=== PATIENT | male | born 1960 ===

== ENCOUNTER 2024-10-16 03:23 | Emergency (ER) | payer MEDICAID ==
[2024-10-16 03:47] LABS: BASOPHILS ABSOLUTE AUTO 0.04 K/uL (0.00-0.20); BASOPHILS PERCENT AUTO 0.3 % (0.0-2.0); EOSINOPHILS ABSOLUTE AUTO 0.03 K/uL (0.00-0.50); EOSINOPHILS PERCENT AUTO 0.2 % (0.0-5.0); HEMATOCRIT 43.3 % (39.0-49.0); HEMOGLOBIN 15.3 g/dL (13.1-16.8); IMMATURE GRAN ABSOLUTE AUTO 0.02 10^3/uL (0.00-0.04); IMMATURE GRAN PERCENT AUTO 0.1 % (0.0-0.4); LYMPHOCYTES PERCENT AUTO 14.8 % (10.0-50.0); MEAN CORPUSCULAR HEMOGLOBIN 31.5 pg (28.2-33.3); MEAN CORPUSCULAR HGB CONC 35.3 g/dL (31.7-36.0); MEAN CORPUSCULAR VOLUME 89.1 fL (84.0-98.0); MONOCYTES ABSOLUTE AUTO 0.89 K/uL (0.00-1.00); MONOCYTES PERCENT AUTO 6.3 % (2.0-14.0); NEUTROPHILS ABSOLUTE AUTO 11.11 K/uL (1.40-7.00); NEUTROPHILS PERCENT AUTO 78.3 % (45.0-80.0); PLATELET COUNT,PLT 286 K/uL (150-350); RED BLOOD CELL COUNT 4.86 M/uL (4.33-5.41); RED CELL DISTRIBUTION WIDTH 12.8 % (11.2-14.1); WHITE BLOOD CELL COUNT,WBC 14.2 K/uL (4.0-10.2)
[2024-10-16] MEDS: Diltiazem 25 MG/5 ML SDV IVPUSH ONE (04:02)
[2024-10-16] MEDS: Sodium Chloride 0.9% 10 ML Syringe FLUSH PRN (04:04)
[2024-10-16 04:08] LABS: ALANINE AMINOTRANSFERASE,ALT 47 U/L (12-78); ALBUMIN 3.9 g/dL (3.4-5.0); ALKALINE PHOSPHATASE 120 IU/L (46-116); ANION GAP 15.3 meq/L (7-15); ASPARTATE AMNIOTRANSFERASE,AST 38 U/L (15-37); BILIRUBIN TOTAL 0.6 mg/dL (0.2-1.0); BLOOD UREA NITROGEN,BUN 29 mg/dL (7-18); CALCIUM 9.4 mg/dL (8.5-10.1); CARBON DIOXIDE,CO2 23.5 mmol/L (21.0-32.0); CHLORIDE,CL 100 mmol/L (98-107); CREATININE 1.55 mg/dL (0.51-1.17); ESTIMATED GFR 50 mL/min (>=60); GLUCOSE RANDOM 160 mg/dL (70-99); MAGNESIUM 1.7 mg/dL (1.8-2.4); POTASSIUM,K 3.8 mmol/L (3.5-5.1); PROTEIN TOTAL,TP 9.2 g/dL (6.4-8.2); SODIUM,NA 135 mmol/L (136-145)
[2024-10-16] MEDS: Sodium Chloride 0.9% 1,000 ML IV ONE ×2 (04:24→05:30)
[2024-10-16] MEDS: Ondansetron 4 MG/2 ML SDV IVPUSH ONE (04:27)
[2024-10-16] MEDS: Pantoprazole 40 MG Vial IVPUSH ONE (04:33)
[2024-10-16] MEDS: Magnesium Sulfat/D5W 1GM/100ML 1 GM in Premix Bag 1 BAG IV ONE (04:38)
[2024-10-16] MEDS: Diltiazem IR 60 MG Tab PO ONE (05:01)
[2024-10-16 08:35] LABS: CREATININE 1.18 mg/dL (0.51-1.17); EST CRCL DRUG DOSING (CG) 62.22 mL/min
[2024-10-16 08:57] LABS: TSH ULTRASENSITIVE 1.359 mIU/mL (0.358-3.740)
[2024-10-16] MEDS: Iopamidol 755 Mg/ML 100 ML Bottle IVPUSH ONE (09:52)
[2024-10-16] MEDS: Haloperidol Lactate 5 MG/ML SDV IVPUSH ONE (11:57)
[2024-10-16] MEDS: LORazepam 2 MG/ML SDV IVPUSH ONE ×2 (11:57→12:32)
[2024-10-16] MEDS: diphenhydrAMINE 50 MG/ML SDV IVPUSH ONE (11:57)
[2024-10-16] MEDS: diphenhydrAMINE 50 MG/ML SDV ONE (12:52)
[2024-10-16] MEDS: Haloperidol Lactate 5 MG/ML SDV ONE (12:52)
[2024-10-16] MEDS: Haloperidol Lactate 5 MG/ML SDV IM ONE (12:59)
[2024-10-16] MEDS: diphenhydrAMINE 50 MG/ML SDV IM ONE (12:59)
== END 2024-10-16 12:20 ==
LOC: LL.ED 03:23
DX: E83.42 Hypomagnesemia (principal); E86.0 Dehydration; R07.2 Precordial pain; R79.89 Other specified abnormal findings of blood chemistry; R94.4 Abnormal results of kidney function studies; E03.9 Hypothyroidism, unspecified; I10 Essential (primary) hypertension; Z87.891 Personal history of nicotine dependence; Z88.6 Allergy status to analgesic agent; Z88.5 Allergy status to narcotic agent; Z79.890 Hormone replacement therapy; Z53.20 Procedure and treatment not carried out because of patient's decision for unspecified reasons; Z79.899 Other long term (current) drug therapy
CPT/HCPCS: 36415; 71045; 71275; 80053; 82565; 83735; 84443; 84484; 85025; 85379; 85610; 87428; 93005; 96361; 96365; 96375; 99285; J1200; J1630; J2060; J2405; J2470; J3475; J3490; J7030; Q9967